=== PATIENT | female | born 1950 | race Caucasian/White ===

== ENCOUNTER 2022-05-26 10:21 | Outpatient (REF) | payer MEDICARE, SELFPAY ==
[2022-05-26 11:46] LABS: MANUAL DIFF FLAG NO
[2022-05-26 12:24] LABS: Basophils Absolute Auto 0.1 X10*3/uL (0.0-0.2); Basophils Percent Auto 0.4 % (0-2); Eosinophils Percent Auto 0.3 % (0-4); Hematocrit 36.8 % (37.0-47.0); Imm Gran Abs Auto 0.15 X10*3/uL (0.00-0.03); Imm Gran Pct Auto 1.1 % (0.0-0.4); Lymphocytes Absolute Auto 2.4 X10*3/uL (1.2-4.9); Lymphocytes Percent Auto 17.2 % (20-40); Mean Corpuscular HGB Conc 32.6 g/dl (31.0-35.0); Mean Corpuscular Hemoglobin 33.5 pg (27.0-33.0); Mean Corpuscular Volume 102.8 fL (80.0-98.0); Mean Platelet Volume 10.9 fL (9.4-12.3); Monocytes Absolute Auto 0.7 X10*3/uL (0.1-1.2); Monocytes Percent Auto 5.1 % (2-11); Neutrophils Absolute Auto 10.5 x10*3/uL (2.0-8.3); Neutrophils Percent Auto 75.9 % (45-73); Platelet Count 213 X10*3/uL (160-400); Red Blood Count 3.58 X10*6/uL (4.20-5.50); Red Cell Distribution Width 14.5 % (11.0-16.0); White Blood Count 13.9 X10*3/uL (4.8-10.8)
[2022-05-26 12:54] LABS: Alanine Aminotransferase 51 U/L (0-31); Albumin Level 4.3 g/dL (3.5-5.0); Alkaline Phosphatase 111 U/L (39-117); Aspartate Amino Transferase 39 U/L (5-31); Bilirubin Direct < 0.2 mg/dL (0.0-0.5); Bilirubin Total 0.4 mg/dL (0.0-1.0); Total Protein 6.8 g/dL (6.5-8.0)
[2022-05-26 13:30] LABS: Erythrocyte Sedimentation Rate 20 MM/HR (0-20)
[2022-05-27 15:04] LABS: IgA 115 mg/dL (70-320); IgG 850 mg/dL (600-1540); IgM 137 mg/dL (50-300)
== END 2022-05-26 10:22 | disposition home or self-care (01) ==
LOC: HO.LAB 10:21
PROVIDERS: PCP Internal Medicine; Visit Provider Hospitalist
DX: J45.909 Unspecified asthma, uncomplicated (principal); Z91.09 Other allergy status, other than to drugs and biological substances
CPT/HCPCS: 36415; 80076; 82784; 82785; 85025; 85652; 86003; 99202

== ENCOUNTER 2022-06-19 10:45 | Outpatient (REF) | payer MEDICARE, SELFPAY ==
--- NOTE | ~2022-06-19 | XR_ITS ---
EXAMINATION: XR CHEST CLINICAL INFORMATION: Reason for Exam J45.40 - Moderate persistent asthma, uncomplicated COMPARISON: None TECHNIQUE: 2 views of the chest FINDINGS: Clear lungs. No pneumothorax or pleural effusion. Normal cardiomediastinal silhouette. XR/XR chest 2V IMPRESSION: * Clear lungs.
== END 2022-06-19 10:46 | disposition home or self-care (01) ==
LOC: HO.RESP 10:45
PROVIDERS: PCP Internal Medicine; Visit Provider Hospitalist
DX: J45.40 Moderate persistent asthma, uncomplicated (principal)
CPT/HCPCS: 71046; 94060; 94727; 94729

== ENCOUNTER → 2022-07-23 09:29 | Outpatient (BNVA) | payer MEDICARE, SELFPAY | PROVIDERS: PCP Internal Medicine; Visit Provider Hospitalist | DX: J45.40 Moderate persistent asthma, uncomplicated (principal); J30.9 Allergic rhinitis, unspecified; Z91.09 Other allergy status, other than to drugs and biological substances; Z79.899 Other long term (current) drug therapy | CPT/HCPCS: 99212 ==

== ENCOUNTER 2023-02-03 09:42 | Outpatient (AMB) | payer MEDICARE, SELFPAY ==
--- NOTE | 2023-02-03 09:48 | MHC.OFFVIS ---
Intake Vital Signs 02/03/23 09:50 Height 5 ft 3 in Weight 145 lb BMI 25.7 BP 132/60 Blood Pressure Location Lt brachial Position Sitting Pulse 89 Pulse Source Pulse Oximeter Pulse Oximetry (%) 98 Oxygen Delivery Method Room Air Intake Visit Reasons: asthma Head Sawyer Required: No Allergies No Known Allergies Allergy (Verified 02/03/23 09:53) HPI HPI Comments History of Present Illness Details The patient is a 72 year woman who has been previously healthy until about 3 years ago when she started developing worsening cough shortness of breath nasal congestion. Typically worse in the winter months. The this year seems to be worse. She has that already multiple courses of prednisone because significant chest tightness wheezing and also chest congestion and sinus congestion. Recently went to an urgent care where she was given another course. While she is on prednisone she feels significantly better. She was prescribed Breo but does not seem to be helping at this time. The patient has had allergy testing in the past demonstrating typical allergens to the environment. The patient denies any new members of the family or any pets or any significant mold exposure. Right now she has not had any significant changes in her life. After the prednisone the breathing significantly improved. Will try to maximize her respiratory therapy anyway. In addition to that will request a chest x-ray and blood work to further address her triggers in addition to assessing her immune function. Also to note the patient does have arthritis. She is being referred to a turning sander tender. Will wait to see the impression. Likely to be multiple separate diagnosis of supposed 1 the universal diagnosis. 07/23/2022 the patient is here for pulmonary follow-up visit. Overall she is feeling a lot better. Her cough is better no shortness of breath is improved. She is responding well to Trelegy. She is concerned about the fall and winter when she has worse symptoms. We did review her chest x-ray demonstrating no acute disease. In addition to that we did look at her allergies she does have an elevated IgE up to 430. She has significant seasonal allergies. She understands that there may be other allergies that may be active that were not tested. The patient did also have pulmonary function studies which we personally reviewed. No evidence of any obstructive nor restrictive ventilatory defects identified. 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 This could be the result of her previous COVID infection. Pulmonary vascular conditions are in the differential. We ruled out anemia in ruled out evidence of any interstitial lung disease based on the x-ray. Will continue to monitor her symptoms. I am hoping that she continues to do well. She does have a nasal congestion. Will go ahead and add Singulair to her regimen. He will follow-up in the fall when she typically has worse symptoms. Will consider biologic therapy if she is worse. The patient also may need to have a CT scan of the chest if she has any worsening symptoms in order to follow-up with any occult interstitial lung disease to try to explain the moderate diffusion impairment. 02/03/2023 the patient is here for pulmonary follow-up visit. She is doing a lot better from a respiratory status per the Trelegy and the singular seem to be very effective for her. Denies any significant chest tightness or wheezing. Her cough is overall better. However, she is having worse degree of postnasal drip and hoarseness. The patient is also having significant nasal congestion. She thinks is allergy related. Denies any sick contacts. The patient has been using Flonase in the morning and also nasal rinsing at nighttime. Her respiratory exam is reassuring. We again reviewed her PFTs demonstrating an isolated diffusion impairment. Will go ahead and repeat the PFTs sometime in the summer of 2023. I hope that we see improvement. It could have been the result of a previous infection such as COVID. The patient clinically is doing well denies any significant dyspnea on exertion. Recently she did undergo blood work and she may have a degree of anemia. I did ask her to see if she can work on that to minimize the anemia prior to her PFTs over the summer. The patient will monitor closely her sinus symptoms. If she develops any sinus pressure pain 0 worsening symptoms she can call for antibiotics. [facility] Medical History (Updated 05/26/22 @ 20:56 by Dev Otero MD) Chronic allergic rhinitis Asthma Social History Patient Tobacco Use Status: Never used Tobacco Review of Systems Const Denies fever(s) Eyes Denies change in vision ENT Reports nasal congestion and Reports nasal discharge Card Denies chest pain Resp Denies chest congestion, Reports cough and Denies wheezing GI Reports no additional complaints Musc Reports no additional complaints Skin/Breast Denies rash Neuro Reports no additional complaints Psych Reports no additional complaints Endo Reports heat intolerance Bob/Lymph Denies easy bleeding, Denies easy bruising and Denies lymphadenopathy Aller/Immun Denies wheezing Physical Exam Const General: alert HEENT Head: Yes normocephalic Eyes Conjunctivae: conjunctivae normal Sclerae: sclerae normal Neck Neck: Yes supple Chest Chest palpation & inspection: normal inspection of the chest Resp Effort & Inspection: normal respiratory effort Auscultation: no wheezes and diminished lung sounds Cardio Rate: regular rate Rhythm: regular rhythm Heart sounds: S1 normal heart sound present and S2 normal heart sound present GI Palpation (GI): Soft to palpation Skin General skin exam: no rashes or lesions noted Extrem General: Yes no clubbing, cyanosis or edema Assessment & Plan Assessment & Plan (1) Chronic allergic rhinitis: Code(s): J30.9 - Allergic rhinitis, unspecified (2) Asthma: Code(s): J45.909 - Unspecified asthma, uncomplicated Qualifiers: Asthma severity: moderate Asthma persistence: persistent Asthma complication type: uncomplicated Qualified Code(s): J45.40 - Moderate persistent asthma, uncomplicated Plan continue Trelegy 200 INDIO as needed continue singulair no Biologic therapy indicated PFTs in 6 months conrinue fluticasone start astelin continue nasal risnsing call if no better F/U 6 months Orders: Orders PFT pulmonary function test 6 Months J45.40 - Moderate persistent asthma, uncomplicated Medications: New azelastine administer into each nostril 2 sprays intranasal BID 30 mL 6RF 30 days Coding Level of Care Code Est Pt Level 4 (34924) Diagnoses Chronic allergic rhinitis J30.9 Moderate persistent asthma without complication J45.40 Asthma severity: moderate Asthma persistence: persistent Asthma complication type: uncomplicated Time Spent (min) 16
[2023-02-03 09:50] VITALS: BP 132/60; PULSE 89; O2SAT 98; BMI 25.7
== END 2023-02-03 10:11 | disposition home or self-care (01) ==
PROVIDERS: PCP Internal Medicine; Visit Provider Hospitalist
DX: J30.9 Allergic rhinitis, unspecified (principal); J45.40 Moderate persistent asthma, uncomplicated
CPT/HCPCS: 99214

== ENCOUNTER → 2023-02-03 09:42 | Outpatient (BNVA) | payer MEDICARE, SELFPAY | PROVIDERS: PCP Internal Medicine; Visit Provider Hospitalist | DX: J45.40 Moderate persistent asthma, uncomplicated (principal); J30.9 Allergic rhinitis, unspecified | CPT/HCPCS: 99212 ==

== ENCOUNTER 2023-08-11 09:50 | Outpatient (AMB) | payer MEDICARE, SELFPAY ==
[2023-08-11 09:53] VITALS: BP 118/60; PULSE 87; O2SAT 98; BMI 26.6
--- NOTE | 2023-08-11 09:53 | A.OFFVIS_ITS ---
Vital Signs 08/11/23 09:53 Height 5 ft 3 in Weight 150 lb BMI 26.6 BP 118/60 Blood Pressure Location Lt brachial Position Sitting Pulse 87 Pulse Source Pulse Oximeter Pulse Oximetry (%) 98 Oxygen Delivery Method Room Air Intake Visit Reasons: asthma Pottery Kiln Builder Required: No Allergies No Known Allergies Allergy (Verified 08/11/23 09:55) HPI Comments Details: The patient is a 73 year woman who has been previously healthy until about 3 years ago when she started developing worsening cough shortness of breath nasal congestion. Typically worse in the winter months. The this year seems to be worse. She has that already multiple courses of prednisone because significant chest tightness wheezing and also chest congestion and sinus congestion. Recently went to an urgent care where she was given another course. While she is on prednisone she feels significantly better. She was prescribed Breo but does not seem to be helping at this time. The patient has had allergy testing in the past demonstrating typical allergens to the environment. The patient denies any new members of the family or any pets or any significant mold exposure. Right now she has not had any significant changes in her life. After the prednisone the breathing significantly improved. Will try to maximize her respiratory therapy anyway. In addition to that will request a chest x-ray and blood work to further address her triggers in addition to assessing her immune function. Also to note the patient does have arthritis. She is being referred to a crucible furnace tender. Will wait to see the impression. Likely to be multiple separate diagnosis of supposed 1 the universal diagnosis. 07/23/2022 the patient is here for pulmonary follow-up visit. Overall she is feeling a lot better. Her cough is better no shortness of breath is improved. She is responding well to Trelegy. She is concerned about the fall and winter when she has worse symptoms. We did review her chest x-ray demonstrating no acute disease. In addition to that we did look at her allergies she does have an elevated IgE up to 430. She has significant seasonal allergies. She understands that there may be other allergies that may be active that were not tested. The patient did also have pulmonary function studies which we personall y reviewed. No evidence of any obstructive nor restrictive ventilatory defects identified. 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 This could be the result of her previous COVID infection. Pulmonary vascular conditions are in the differential. We ruled out anemia in ruled out evidence of any interstitial lung disease based on the x- ray. Will continue to monitor her symptoms. I am hoping that she continues to do well. She does have a nasal congestion. Will go ahead and add Singulair to her regimen. He will follow-up in the fall when she typically has worse symptoms. Will consider biologic therapy if she is worse. The patient also may need to have a CT scan of the chest if she has any worsening symptoms in order to follow-up with any occult interstitial lung disease to try to explain the moderate diffusion impairment. 02/03/2023 the patient is here for pulmonary follow-up visit. She is doing a lot better from a respiratory status per the Trelegy and the singular seem to be very effective for her. Denies any significant chest tightness or wheezing. Her cough is overall better. However, she is having worse degree of postnasal drip and hoarseness. The patient is also having significant nasal congestion. She thinks is allergy related. Denies any sick contacts. The patient has been using Flonase in the morning and also nasal rinsing at nighttime. Her respiratory exam is reassuring. We again reviewed her PFTs demonstrating an isolated diffusion impairment. Will go ahead and repeat the PFTs sometime in the summer of 2023. I hope that we see improvement. It could have been the result of a previous infection such as COVID. The patient clinically is doing well denies any significant dyspnea on exertion. Recently she did undergo blood work and she may have a degree of anemia. I did ask her to see if she can work on that to minimize the anemia prior to her PFTs over the summer. The patient will monitor closely her sinus symptoms. If she develops any sinus pressure pain 0 worsening symptoms she can call for antibiotics. 08/11/2023 the patient is here for pulmonary follow-up visit patient mayfield doing okay. She still has a cough. The cough is moderate severe and is usually nonproductive. Typically bothers her at nighttime. Seems to be an upper airway cough syndrome. She did try the Astelin nasal spray but she did not like the acetate in the fact that her food taste. Therefore she could not tolerating longer she stopped it. She continues on the fluticasone. She has done the nasal rinsing in the past. She is going to go back to it. We did review her pulmonary function studies. It appears that she has moderate diffusion impairment that is isolated. So unlikely real care will go ahead and repeat her PFTs at this time. In addition to that she continues on the Trelegy inhaler. It has been affecting beneficial although she still needs her albuterol on a daily basis. Today she did have a coughing spell in the office. Typically it appears to be hacky and nonproductive Bard bronchospastic some degree. She is being provided with the nebulizer treatment to see if she has any relief. She may benefit from a nebulizer at this time. As far as imaging studies she had an x-ray about a year ago we demonstrating no acute disease clear lungs. Now recent imaging at this time. [facility] Medical History (Updated 05/26/22 @ 20:56 by Dev Otero MD) Chronic allergic rhinitis Asthma Social History Patient Tobacco Use Status: Never used Tobacco Review of Systems Const Denies fever(s) Eyes Denies change in vision ENT Reports nasal congestion and Reports nasal discharge Card Denies chest pain Resp Denies chest congestion, Reports cough and Denies wheezing GI Reports no additional complaints Musc Reports no additional complaints Skin/Breast Denies rash Neuro Reports no additional complaints Psych Reports no additional complaints Endo Reports heat intolerance Bob/Lymph Denies easy bleeding, Denies easy bruising and Denies lymphadenopathy Aller/Immun Denies wheezing Physical Exam Vital Signs: Last Vital Signs Pulse 87 08/11/23 09:53 BP 118/60 08/11/23 09:53 Pulse Ox 98 08/11/23 09:53 Oxygen Delivery Method Room Air 08/11/23 09:53 BMI result Body Mass Index 26.6 Const General: alert HEENT Head: Yes normocephalic Eyes Conjunctivae: conjunctivae normal Sclerae: sclerae normal Neck Neck: Yes supple Chest Chest palpation & inspection: normal inspection of the chest Resp Effort & Inspection: normal respiratory effort Auscultation: no wheezes and diminished lung sounds Cardio Rate: regular rate Rhythm: regular rhythm Heart sounds: S1 normal heart sound present and S2 normal heart sound present GI Palpation (GI): Soft to palpation Skin General skin exam: no rashes or lesions noted Extrem General: Yes no clubbing, cyanosis or edema Office Procedures Nebulizer Treatment Nebulizer Treatment [id number]/[id number] RX initial, or Nebulizer Subsequent Treatment Office Meds albuterol sulfate 2.5 mg/3 mL (0.083 %) solution for nebulization Performing Provider: Dev Otero MD Performing Location: [facility] Administered by: Alida Melara LPN on 08/11/23 10:13 Dose Route Admin Location Dispensed Lot Number Expiration Date NDC Community Resource Officer 2.5 mg inhalation 3 mL [id number] 05/30/24 2516-7847-39 MYLAN Assessment & Plan Assessment & Plan (1) Chronic allergic rhinitis: Code(s): J30.9 - Allergic rhinitis, unspecified Category: Medical (2) Asthma: Code(s): J45.909 - Unspecified asthma, uncomplicated Category: Medical Qualifiers: Asthma complication type: uncomplicated Asthma persistence: persistent Asthma severity: moderate Qualified Code(s): J45.40 - Moderate persistent asthma, uncomplicated Plan continue Trelegy 200 INDIO as needed continue singulair no Biologic therapy indicated PFTs conrinue fluticasone stop astelin continue nasal risnsing start nebulizer therapy (nebulizer provided) with albuterol start acapella valve start zyrtec F/U 4 months with PFTs Orders: Orders AMB Nebulizer Treatment Today J45.40 - Moderate persistent asthma, uncomplicated PFT pulmonary function test 3 Months J45.40 - Moderate persistent asthma, uncomplicated Medications: New cetirizine (Zyrtec) 10 mg PO DAILY 30 tabs 6RF allergy symptoms levalbuterol HCl 1.25 mg (3 mL) inhalation BID 30 days 180 mL 5RF J44.9 - Chronic obstructive pulmonary disease, unspecified, J45.40 - Moderate persistent asthma, uncomplicated Coding Level of Care Code Est Pt Level 4 (04035) Diagnoses Chronic allergic rhinitis J30.9 Moderate persistent asthma without complication J45.40 Asthma complication type: uncomplicated Asthma persistence: persistent Asthma severity: moderate CPT Codes Nebulizer Treatment - Nebulizer Treatment, initial or subsequent: 10045- Nebulizer/MDI RX initial, or Nebulizer Subsequent Treatment ([id number]) Time Spent (min) 18
== END 2023-08-11 10:29 | disposition home or self-care (01) ==
PROVIDERS: PCP Internal Medicine; Visit Provider Hospitalist
DX: J30.9 Allergic rhinitis, unspecified (principal); J45.40 Moderate persistent asthma, uncomplicated
CPT/HCPCS: 99214

== ENCOUNTER → 2023-08-11 09:50 | Outpatient (BNVA) | payer MEDICARE, SELFPAY | PROVIDERS: PCP Internal Medicine; Visit Provider Hospitalist | DX: J45.909 Unspecified asthma, uncomplicated (principal) | CPT/HCPCS: 94640; 99212 ==

== ENCOUNTER 2023-12-31 10:49 | Outpatient (REF) | payer MEDICARE, SELFPAY ==
--- NOTE | 2023-12-31 10:54 | PFT_ITS ---
Indication: Asthma Spirometry [FEV1 to FVC 75%; FEV1 2.21 L; FVC 2.94 L. no significant response to bronchodilators noted. Maximum voluntary ventilation 103% predicted] Lung Volumes [Total lung capacity 90% predicted; expiratory reserve volume 59% predicted] Diffusion Capacity [DLCO 78% predicted] Comparisons [None] Interpretation [No obstructive nor restrictive ventilatory defects identified. No significant response to bronchodilators noted. Normal maximum voluntary ventilation. Lung volumes within normal limits. The patient does have a mild diffusion impairment. If asthma is a new differential methacholine challenge very helpful in assessing for hyperreactive airways. Clinical correlation warranted.] MTDD
[2024-01-14 09:30] VITALS: PULSE 85; RESP 16; O2SAT 97
== END 2023-12-31 10:50 | disposition home or self-care (01) ==
LOC: HO.RESP 10:49
PROVIDERS: PCP Internal Medicine; Visit Provider Hospitalist
DX: J45.40 Moderate persistent asthma, uncomplicated (principal)
CPT/HCPCS: 94010; 94640; 94727; 94729

== ENCOUNTER → 2023-12-31 10:54 | Outpatient (BNV) | payer MEDICARE, SELFPAY | PROVIDERS: PCP Internal Medicine; Visit Provider Hospitalist | DX: J45.40 Moderate persistent asthma, uncomplicated (principal) | CPT/HCPCS: 94060; 94727; 94729 ==

== ENCOUNTER 2024-01-21 13:34 | Outpatient (AMB) | payer MEDICARE, SELFPAY ==
--- NOTE | 2024-01-21 13:51 | A.OFFVIS_ITS ---
Vital Signs 01/21/24 13:52 Height 5 ft 3 in Weight 158 lb 11.725 oz BMI 28.1 BP 142/80 H Blood Pressure Location Lt brachial Position Sitting Pulse 89 Pulse Source Pulse Oximeter Pulse Oximetry (%) 96 Oxygen Delivery Method Room Air Intake Visit Reasons: asthma Allergies No Known Allergies Allergy (Verified 01/21/24 13:54) HPI Comments Details: The patient is a 73 year woman who has been previously healthy until about 3 years ago when she started developing worsening cough shortness of breath nasal congestion. Typically worse in the winter months. The this year seems to be worse. She has that already multiple courses of prednisone because significant chest tightness wheezing and also chest congestion and sinus congestion. Recently went to an urgent care where she was given another course. While she is on prednisone she feels significantly better. She was prescribed Breo but does not seem to be helping at this time. The patient has had allergy testing in the past demonstrating typical allergens to the environment. The patient denies any new members of the family or any pets or any significant mold exposure. Right now she has not had any significant changes in her life. After the prednisone the breathing significantly improved. Will try to maximize her respiratory therapy anyway. In addition to that will request a chest x-ray and blood work to further address her triggers in addition to assessing her immune function. Also to note the patient does have arthritis. She is being referred to a creative arts music therapist. Will wait to see the impression. Likely to be multiple separate diagnosis of supposed 1 the universal diagnosis. 07/23/2022 the patient is here for pulmonary follow-up visit. Overall she is feeling a lot better. Her cough is better no shortness of breath is improved. She is responding well to Trelegy. She is concerned about the fall and winter when she has worse symptoms. We did review her chest x-ray demonstrating no acute disease. In addition to that we did look at her allergies she does have an elevated IgE up to 430. She has significant seasonal allergies. She understands that there may be other allergies that may be active that were not tested. The patient did also have pulmonary function studies which we personally reviewed. No evidence of any obstructive nor restrictive ventilatory defects identified. 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 This could be the result of her previous COVID infection. Pulmonary vascular conditions are in the differential. We ruled out anemia in ruled out evidence of any interstitial lung disease based on the x-ray. Will continue to monitor her symptoms. I am hoping that she continues to do well. She does have a nasal congestion. Will go ahead and add Singulair to her regimen. He will follow-up in the fall when she typically has worse symptoms. Will consider biologic therapy if she is worse. The patient also may need to have a CT scan of the chest if she has any worsening symptoms in order to follow-up with any occult interstitial lung dise ase to try to explain the moderate diffusion impairment. 02/03/2023 the patient is here for pulmonary follow-up visit. She is doing a lot better from a respiratory status per the Trelegy and the singular seem to be very effective for her. Denies any significant chest tightness or wheezing. Her cough is overall better. However, she is having worse degree of postnasal drip and hoarseness. The patient is also having significant nasal congestion. She thinks is allergy related. Denies any sick contacts. The patient has been using Flonase in the morning and also nasal rinsing at nighttime. Her respiratory exam is reassuring. We again reviewed her PFTs demonstrating an isolated diffusion impairment. Will go ahead and repeat the PFTs sometime in the summer of 2023. I hope that we see improvement. It could have been the result of a previous infection such as COVID. The patient clinically is doing well denies any significant dyspnea on exertion. Recently she did undergo blood work and she may have a degree of anemia. I did ask her to see if she can work on that to minimize the anemia prior to her PFTs over the summer. The patient will monitor closely her sinus symptoms. If she develops any sinus pressure pain 0 worsening symptoms she can call for antibiotics. 08/11/2023 the patient is here for pulmonary follow-up visit patient mayfield doing okay. She still has a cough. The cough is moderate severe and is usually nonproductive. Typically bothers her at nighttime. Seems to be an upper airway cough syndrome. She did try the Astelin nasal spray but she did not like the acetate in the fact that her food taste. Therefore she could not tolerating longer she stopped it. She continues on the fluticasone. She has done the nasal rinsing in the past. She is going to go back to it. We did review her pulmonary function studies. It appears that she has moderate diffusion impairment that is isolated. So unlikely real care will go ahead and repeat her PFTs at this time. In addition to that she continues on the Trelegy inhaler. It has been affecting beneficial although she still needs her albuterol on a daily basis. Today she did have a coughing spell in the office. Typically it appears to be hacky and nonproductive Bard bronchospastic some degree. She is being provided with the nebulizer treatment to see if she has any relief. She may benefit from a nebulizer at this time. As far as imaging studies she had an x-ray about a year ago we demonstrating no acute disease clear lungs. Now recent imaging at this time. 01/21/2024 the patient is here for a pulmonary follow-up visit. Overall she is doing okay. She is here with the . She is complaining about her cough. Since to be worse at nighttime. Typically nonproductive in nature hacky cough moderate severity that affects her sleep. Also affects his sleep. She does have reflux disease and she takes medication. We did talk about the importance the reflux diet also sleeping elevated and having small meals. The going to work on lifting up the head of the bed to try to help her with that. In the meantime the patient did have issues with hoarseness. Could be related to reflux related laryngeal penetration although she is also on Trelegy which is a powder inhaler that can also affect the vocal cords. At this point the patient would need to have a laryngoscopy to better address the hoarseness. Will have her referred to ENT where she can have a laryngoscopy and have a full evaluation for that. For now she will continue with the Trelegy and she needs to gargle with mouthwash better than water. The patient has been using cough medication. Usually cough drops. Will go ahead and prescribe some benzo nights. Also give her good Rx card just in case her insurance does not cover. If she has still has an issue she will call for further evaluation. Otherwise will follow-up in the springtime. also, her last chest x-ray was in 2022 was read as normal. Will have her repeat the x-ray whenever able to make sure that we are monitoring closely for any changes. Will follow-up in 4-6 months. If any issues arise prior to that she will call for an earlier assessing. [facility] Medical History (Updated 01/21/24 @ 14:04 by Dev Otero MD) Hoarseness Chronic allergic rhinitis Asthma Social History Patient Tobacco Use Status: Never used Tobacco Review of Systems Const Denies fever(s) Eyes Denies change in vision ENT Reports nasal congestion and Reports nasal discharge Card Denies chest pain Resp Denies chest congestion, Reports cough and Denies wheezing GI Reports no additional complaints and Reports heartburn Musc Reports no additional complaints Skin/Breast Denies rash Neuro Reports no additional complaints Psych Reports no additional complaints Endo Reports heat intolerance Bob/Lymph Denies easy bleeding, Denies easy bruising and Denies lymphadenopathy Aller/Immun Denies wheezing Physical Exam Vital Signs: Last Vital Signs Pulse 89 01/21/24 13:52 BP 142/80 H 01/21/24 13:52 Pulse Ox 96 01/21/24 13:52 Oxygen Delivery Method Room Air 01/21/24 13:52 BMI result Body Mass Index 28.1 Const General: alert HEENT Head: Yes normocephalic Eyes Conjunctivae: conjunctivae normal Sclerae: sclerae normal Neck Neck: Yes supple Chest Chest palpation & inspection: normal inspection of the chest Resp Effort & Inspection: normal respiratory effort Auscultation: no wheezes and diminished lung sounds Cardio Rate: regular rate Rhythm: regular rhythm Heart sounds: S1 normal heart sound present and S2 normal heart sound present GI Palpation (GI): Soft to palpation Skin General skin exam: no rashes or lesions noted Extrem General: Yes no clubbing, cyanosis or edema Assessment & Plan Assessment & Plan (1) Chronic allergic rhinitis: Code(s): J30.9 - Allergic rhinitis, unspecified Category: Medical (2) Asthma: Code(s): J45.909 - Unspecified asthma, uncomplicated Category: Medical Qualifiers: Asthma complication type: uncomplicated Asthma persistence: persistent Asthma severity: moderate Qualified Code(s): J45.40 - Moderate persistent asthma, uncomplicated (3) Hoarseness: Code(s): R49.0 - Dysphonia Category: Medical Plan continue Trelegy 200 INDIO as needed continue singulair no Biologic therapy indicated continue nasal risnsing nebulizer therapy (nebulizer provided) with albuterol acapella valve CXR ENT referral Benzonates as needed for cough-Goodrx card provided reflux diet HOB elevated continue PPI F/U 4-6 months Orders: Orders XR chest 2V Today J45.40 - Moderate persistent asthma, uncomplicated Referrals Ear/Nose/Throat Referral J30.9 - Allergic rhinitis, unspecified, R49.0 - Dysphonia Medications: New benzonatate 200 mg PO BID PRN 30 caps 11RF cough 30 days benzonatate 200 mg PO BID PRN 60 caps 9RF cough 30 days Coding Level of Care Code Est Pt Level 4 (14942) Complex EM visit Add On G2211 Diagnoses Chronic allergic rhinitis J30.9 Moderate persistent asthma without complication J45.40 Asthma complication type: uncomplicated Asthma persistence: persistent Asthma severity: moderate Hoarseness R49.0 Time Spent (min) 18
[2024-01-21 13:52] VITALS: BP 142/80; PULSE 89; O2SAT 96; BMI 28.1
== END 2024-01-21 14:23 | disposition home or self-care (01) ==
PROVIDERS: PCP Internal Medicine; Visit Provider Hospitalist
DX: J30.9 Allergic rhinitis, unspecified (principal); J45.40 Moderate persistent asthma, uncomplicated; R49.0 Dysphonia
CPT/HCPCS: 99214; G2211

== ENCOUNTER → 2024-01-21 13:34 | Outpatient (BNVA) | payer MEDICARE, SELFPAY | PROVIDERS: PCP Internal Medicine; Visit Provider Hospitalist | DX: J45.40 Moderate persistent asthma, uncomplicated (principal); J30.9 Allergic rhinitis, unspecified; R49.0 Dysphonia | CPT/HCPCS: 99212 ==

== ENCOUNTER 2024-07-26 10:48 | Outpatient (AMB) | payer MEDICARE, SELFPAY ==
[2024-07-26 10:57] VITALS: BP 110/56; PULSE 76; O2SAT 96; BMI 28.1
--- NOTE | 2024-07-26 10:57 | MHC.OFFVIS ---
Vital Signs 07/26/24 10:57 Height 5 ft 3 in Weight 158 lb 11.725 oz BMI 28.1 BP 110/56 L Blood Pressure Location Lt brachial Position Sitting Pulse 76 Pulse Source Pulse Oximeter Pulse Oximetry (%) 96 Oxygen Delivery Method Room Air Intake Visit Reasons: Asthma Energy Professional Required: No Accompanied by: Self / Same As Patient Allergies No Known Allergies Allergy (Verified 07/26/24 11:01) HPI Comments Details: The patient is a 73 year woman who has been previously healthy until about 3 years ago when she started developing worsening cough shortness of breath nasal congestion. Typically worse in the winter months. The this year seems to be worse. She has that already multiple courses of prednisone because significant chest tightness wheezing and also chest congestion and sinus congestion. Recently went to an urgent care where she was given another course. While she is on prednisone she feels significantly better. She was prescribed Breo but does not seem to be helping at this time. The patient has had allergy testing in the past demonstrating typical allergens to the environment. The patient denies any new members of the family or any pets or any significant mold exposure. Right now she has not had any significant changes in her life. After the prednisone the breathing significantly improved. Will try to maximize her respiratory therapy anyway. In addition to that will request a chest x-ray and blood work to further address her triggers in addition to assessing her immune function. Also to note the patient does have arthritis. She is being referred to a ferry operator. Will wait to see the impression. Likely to be multiple separate diagnosis of supposed 1 the universal diagnosis. 07/23/2022 the patient is here for pulmonary follow-up visit. Overall she is feeling a lot better. Her cough is better no shortness of breath is improved. She is responding well to Trelegy. She is concerned about the fall and winter when she has worse symptoms. We did review her chest x-ray demonstrating no acute disease. In addition to that we did look at her allergies she does have an elevated IgE up to 430. She has significant seasonal allergies. She understands that there may be other allergies that may be active that were not tested. The patient did also have pulmonary function studies which we personally reviewed. No evidence of any obstructive nor restrictive ventilatory defects identified. 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 This could be the result of her previous COVID infection. Pulmonary vascular conditions are in the differential. We ruled out anemia in ruled out evidence of any interstitial lung disease based on the x-ray. Will continue to monitor her symptoms. I am hoping that she continues to do well. She does have a nasal congestion. Will go ahead and add Singulair to her regimen. He will follow-up in the fall when she typically has worse symptoms. Will consider biologic therapy if she is worse. The patient also may need to have a CT scan of the chest if she has any worsening symptoms in order to follow-up with any occult interstitial lung disease to try to explain the moderate diffusion impairment. 02/03/2023 the patient is here for pulmonary follow-up visit. She is doing a lot better from a respiratory status per the Trelegy and the singular seem to be very effective for her. Denies any significant chest tightness or wheezing. Her cough is overall better. However, she is having worse degree of postnasal drip and hoarseness. The patient is also having significant nasal congestion. She thinks is allergy related. Denies any sick contacts. The patient has been using Flonase in the morning and also nasal rinsing at nighttime. Her respiratory exam is reassuring. We again reviewed her PFTs demonstrating an isolated diffusion impairment. Will go ahead and repeat the PFTs sometime in the summer of 2023. I hope that we see improvement. It could have been the result of a previous infection such as COVID. The patient clinically is doing well denies any significant dyspnea on exertion. Recently she did undergo blood work and she may have a degree of anemia. I did ask her to see if she can work on that to minimize the anemia prior to her PFTs over the summer. The patient will monitor closely her sinus symptoms. If she develops any sinus pressure pain 0 worsening symptoms she can call for antibiotics. 08/11/2023 the patient is here for pulmonary follow-up visit patient mayfield doing okay. She still has a cough. The cough is moderate severe and is usually nonproductive. Typically bothers her at nighttime. Seems to be an upper airway cough syndrome. She did try the Astelin nasal spray but she did not like the acetate in the fact that her food taste. Therefore she could not tolerating longer she stopped it. She continues on the fluticasone. She has done the nasal rinsing in the past. She is going to go back to it. We did review her pulmonary function studies. It appears that she has moderate diffusion impairment that is isolated. So unlikely real care will go ahead and repeat her PFTs at this time. In addition to that she continues on the Trelegy inhaler. It has been affecting beneficial although she still needs her albuterol on a daily basis. Today she did have a coughing spell in the office. Typically it appears to be hacky and nonproductive Bard bronchospastic some degree. She is being provided with the nebulizer treatment to see if she has any relief. She may benefit from a nebulizer at this time. As far as imaging studies she had an x-ray about a year ago we demonstrating no acute disease clear lungs. Now recent imaging at this time. 01/21/2024 the patient is here for a pulmonary follow-up visit. Overall she is doing okay. She is here with the . She is complaining about her cough. Since to be worse at nighttime. Typically nonproductive in nature hacky cough moderate severity that affects her sleep. Also affects his sleep. She does have reflux disease and she takes medication. We did talk about the importance the reflux diet also sleeping elevated and having small meals. The going to work on lifting up the head of the bed to try to help her with that. In the meantime the patient did have issues with hoarseness. Could be related to reflux related laryngeal penetration although she is also on Trelegy which is a powder inhaler that can also affect the vocal cords. At this point the patient would need to have a laryngoscopy to better address the hoarseness. Will have her referred to ENT where she can have a laryngoscopy and have a full evaluation for that. For now she will continue with the Trelegy and she needs to gargle with mouthwash better than water. The patient has been using cough medication. Usually cough drops. Will go ahead and prescribe some benzo nights. Also give her good Rx card just in case her insurance does not cover. If she has still has an issue she will call for further evaluation. Otherwise will follow-up in the springtime. also, her last chest x-ray was in 2022 was read as normal. Will have her repeat the x-ray whenever able to make sure that we are monitoring closely for any changes. Will follow-up in 4-6 months. If any issues arise prior to that she will call for an earlier assessing. 07/26/2024 the patient is here for pulmonary follow-up visit. Overall she is doing well. She continues on the Trelegy. The Trelegy has been affecting beneficial. Her cough is significantly improved. She did not have to follow-up with ENT so therefore she canceled. No recent imaging to review right now. When she returns next year will go ahead and repeat an x-ray. The patient does have a rescue inhaler although she rarely uses it. And she does take allergy medicines. We did review her allergy testing she has significant allergies specially in the springtime to the trees. Therefore keeping up with her allergy medicine is richardson. The patient is no longer going to follow-up with Allergy for now will continue to provide her with the allergy medications but if her symptoms worsen she can always consider going back for immunotherapy in for further allergy testing. Will plan to follow-up next year if she has any issues prior to this next visit she will call for an earlier assessment. [facility] Medical History (Updated 01/21/24 @ 14:04 by Dev Otero MD) Hoarseness Chronic allergic rhinitis Asthma Social History Patient Tobacco Use Status: Never used Tobacco Review of Systems Const Denies fever(s) Eyes Denies change in vision ENT Reports nasal congestion and Reports nasal discharge Card Denies chest pain Resp Denies chest congestion, Reports cough and Denies wheezing GI Reports no additional complaints and Reports heartburn Musc Reports no additional complaints Skin/Breast Denies rash Neuro Reports no additional complaints Psych Reports no additional complaints Endo Reports heat intolerance Bob/Lymph Denies easy bleeding, Denies easy bruising and Denies lymphadenopathy Aller/Immun Denies wheezing Physical Exam Vital Signs: Last Vital Signs Pulse 76 07/26/24 10:57 BP 110/56 L 07/26/24 10:57 Pulse Ox 96 07/26/24 10:57 Oxygen Delivery Method Room Air 07/26/24 10:57 BMI result Body Mass Index 28.1 Const General: alert HEENT Head: Yes normocephalic Eyes Conjunctivae: conjunctivae normal Sclerae: sclerae normal Neck Neck: Yes supple Chest Chest palpation & inspection: normal inspection of the chest Resp Effort & Inspection: normal respiratory effort and prolonged expiratory phase Auscultation: no wheezes and diminished lung sounds Cardio Rate: regular rate Rhythm: regular rhythm Heart sounds: S1 normal heart sound present and S2 normal heart sound present GI Palpation (GI): Soft to palpation Skin General skin exam: no rashes or lesions noted Extrem General: Yes no clubbing, cyanosis or edema Assessment & Plan Assessment & Plan (1) Chronic allergic rhinitis: Code(s): J30.9 - Allergic rhinitis, unspecified Category: Medical (2) Asthma: Code(s): J45.909 - Unspecified asthma, uncomplicated Category: Medical Qualifiers: Asthma complication type: uncomplicated Asthma persistence: persistent Asthma severity: moderate Qualified Code(s): J45.40 - Moderate persistent asthma, uncomplicated (3) Hoarseness: Code(s): R49.0 - Dysphonia Category: Medical Plan continue Trelegy 200 INDIO as needed continue singulair no Biologic therapy indicated continue nasal risnsing nebulizer therapy (nebulizer provided) with albuterol acapella valve ENT referral cancelled by pt Benzonates as needed for cough-Goodrx card provided reflux diet HOB elevated continue PPI F/U 8-12 months, will request CXR then Coding Level of Care Code Est Pt Level 4 (44194) Diagnoses Chronic allergic rhinitis J30.9 Moderate persistent asthma without complication J45.40 Asthma complication type: uncomplicated Asthma persistence: persistent Asthma severity: moderate Hoarseness R49.0 Time Spent (min) 16
--- OUTSIDE RECORDS SUMMARY | 2024-07-26 11:38 | XMS_ITS | Clinical Summary ---
Author Organization [address] [facility] Address [address] [place] [address] Phone Care Team Providers Care Motor Installer Name Role Phone Alida Spear MD Primary Care Provider [phone] Allergies No known active allergies Medications bisacodyL (Dulcolax, bisacodyl,) 5 mg EC tablet Take 4 tabs by mouth right before beginning bowel prep. Follow instructions given by office for timing. 1 Active fluticasone propionate (FLONASE) 50 mcg/actuation nasal spray SHAKE LIQUID AND USE 2 SPRAYS IN EACH NOSTRIL DAILY 1 Active fluticasone furoate-vilante roL (Breo Ellipta) 100-25 mcg/dose inhaler INHALE 1 PUFF BY MOUTH DAILY 1 Active traZODone (DESYREL) 50 mg tablet TAKE 1/2 TABLET BY MOUTH AT BEDTIME NEEDED FOR SLEEP 1 Active albuterol HFA (PROAIR HFA ; PROVENTIL HFA ; VENTOLIN HFA) 90 mcg/actuation inhaler Inhale 2 Puffs into the lungs every 4 hours as needed for Cough or Wheezing. 1 Active rosuvastatin (CRESTOR) 10 mg tablet TAKE 1 TABLET DAILY 1 Active cholecalciferol (VITAMIN D-3) 25 mcg (1,000 unit) tablet 6 Active glucosamine/msm /chondrt/C/hyal (GLUCOSAMINE-CH ONDROITIN-MSM ORAL) [id number] A CHONDR-MSM [id number] MG TABS: Take by mouth. Active multivit-min/fe rrous fumarate (MULTI VITAMIN ORAL) 1 tab daily Active Active Problems Problem Noted Date Diagnosed Date Internal hemorrhoids 01/09/2021 Elevated alkaline phosphatase level 01/26/2018 Basal cell carcinoma of skin 08/07/2015 Overview (01/18/2024): BCC 05/13 central chest (superficial) 03/15 left shoulder (superficial), eyelid Hyperglycemia 04/10/2014 Lateral epicondylitis 03/08/2013 Elevated MCV 02/22/2013 Overview (01/18/2024): Normal B12, TSH, Folate 03/14 Mixed hyperlipidemia 04/06/2009 Colon polyps 05/20/2007 Immunizations Name Administration Dates Next Due Moderna SARS-CoV-2 COVID-19, mRNA, LNP-S, preservative free 06/13/2020,05/03/2020 Pneumococcal conjugate 13 va lent (Prevnar 13, PCV13) 2mo and older 03/21/2015 Pneumococcal polysaccharide 23 valent (Pneumovax 23) 2yo and older 08/10/2018 Td Tetanus diptheria (Tdvax) 7yo and older 01/06 Tdap Tetanus diptheria acell ular pertussis (Boostrix; Adacel) 7yo and older 10/10/2011 Zoster Live 12/08/2012 Surgical History Surgery Date Site/Laterality Comments TONSILLECTOMY PROCEDURE: CA TONSILLECTOMY PRIMARY/SECONDARY <AGE 11 OTHER SURGICAL HISTORY 1986 PROCEDURE: ARTHROSCOPY PROCEDURE NEC; COMMENT: left foot/ KNEE SURGERY 2011 PROCEDURE: HISTORICAL KNEE SURGERY; COMMENT: left and right. 2010 also OTHER SURGICAL HISTORY 09/2014 PROCEDURE: HISTORY OTHER; COMMENT: stent in vagina for incontinence OTHER SURGICAL HISTORY 2013 PROCEDURE: HISTORY OTHER; COMMENT: excision basal cell ca FOOT SURGERY 04/13/2015 Right PROCEDURE: HISTORICAL FOOT SURGERY; COMMENT: Cole bunionectomy COLONOSCOPY 10/26/2007 PROCEDURE: HISTORICAL COLONOSCOPY; COMMENT: Negative COLONOSCOPY 03/08/2020 PROCEDURE: HISTORICAL COLONOSCOPY; COMMENT: 18 mm rectal polyp: Tubular adenoma. CATARACT EXTRACTION 04/2020 Left PROCEDURE: HISTORICAL CATARACT REMOVAL COLONOSCOPY 12/25/2020 PROCEDURE: HISTORICAL COLONOSCOPY Medical History Medical History Date Comments Absence of menstruation DX:Absen ce of menstruation Special screening for malign ant neoplasms, colon 05/20/2007 DX:Special screening for mal ignant neoplasms, colon; COMMENT: Ref approx 2002, pt cancelled. Negative colonoscopy 10/26/2007, no colon cancer screening needed for 10 years. History of basal cell carcinoma 08/07/2015 DX:History of basal cell carcinoma Colon polyps 05/20/2007 DX:Colon polyps Internal hemorrhoids 01/09/2021 DX:Internal hemorrhoids Family History Medical History Relation Name Comments Coronary artery disease Brother 1 DM Other: brain anerysms Brother 2 Diabetes Brother 3 PA Cervical cancer Daughter alive Asthma Father Blindness Neg Hx Breast cancer Neg Hx Cataracts Neg Hx Colon cancer Neg Hx Glaucoma Neg Hx Macular degeneration Neg Hx Strabismus Neg Hx Relation Name Status Comments Brother 1 Brother 2 Brother 3 Brother 4 Alive Brother 5 Alive Daughter Father Maternal Grandfather Maternal Grandmother Mother Paternal Grandfather Paternal Grandmother Sister 1 Alive Sister 2 Alive Social History Tobacco Use Types Packs/Day Years Used Date Smoking Tobacco: Former Cigarettes Q uit: 03/02/1974 Smokeless Tobacco: Never Alcohol Use Standard Drinks/Week Comments Yes 0 (1 standard drink = 0.6 oz pur e alcohol) Comments Unknown Sex and Gender Information Value Date Recorded Sex Assigned at Not on file Legal Sex Female 9:56 AM EST Gender Identity Not on file Sexual Orientation Not on file Obstetrics History Last Filed Vital Signs Vital Sign Reading Time Taken Comments Blood Pressure 123/75 02/23/2024 2:23 PM EST Pulse 78 02/23/2024 2:23 PM EST Temperature - - Respiratory Rate - - Oxygen Saturation 97% 02/23/2024 2:23 PM EST Inhaled Oxygen Concentration - - Weight 66.7 kg (147 lb) 02/23/2024 2:23 PM EST Height 160 cm (5' 3 ) 02/23/2024 2:23 PM EST Body Mass Index 26.04 02/23/2024 2:23 PM EST Plan of Treatment Upcoming Encounters Date Type Department Care Team (Late st Contact Info) Description 12/09/2024 11:00 AM EDT Appointment Radiology Department [address] [address] Health Maintenance Due Date Last Done Comments Zoster Vaccines (1 of 2) 02/02/2013 12/08/2012 DTaP,Tdap,and Td Vaccines (3 - Td or Tdap) 10/09/2021 10/10/2011, 01/06/2003 Depression Screening 02/08/2022 Falls Risk Assessment 02/08/2022 Medicare Annual Wellness Visit 02/08/2022 Social Influencers of Health Screening 02/08/2022 COVID-19 Vaccine ( season) 2023 01/01/2021, 06/13/2020, 05/31/2020, Additional history exists RSV Immunization Adult Patients (1 - 1-dose 75+ series) 2024 Influenza Vaccine (Season Ended) 2024 Cholesterol Screening (Lipid Panel) 11/28/2024 11/29/2019 Osteoporosis Screening (Bone Density Screening) 01/26/2027 01/26/2017 Colorectal Cancer Screening: Colonoscopy 12/25/2030 12/25/2020 Hepatitis C Screening Completed 05/27/2013 Pneumococcal Vaccine: 50+ Years Completed 02/03/2023, 08/10/2018, 03/21/2015 Breast Cancer Screening Discontinued 11/14/19, 11/14/2023, 09/12/2022, Additional history exists HIB Vaccines Aged Out No longer eligi ble based on patient's age to complete this topic HPV Vaccines Aged Out No longer eligi ble based on patient's age to complete this topic Hepatitis A Vaccines Aged Out No long er eligible based on patient's age to complete this topic Hepatitis B Vaccines Aged Out No long er eligible based on patient's age to complete this topic IPV Vaccines Aged Out No longer eligi ble based on patient's age to complete this topic MMR Vaccines Aged Out No longer eligi ble based on patient's age to complete this topic Meningococcal ACWY Vaccine Aged Out N o longer eligible based on patient's age to complete this topic Meningococcal B Vaccine Aged Out No l onger eligible based on patient's age to complete this topic RSV Immunization Patients Under 20 months Aged Out No longer eligible based on patient's age to complete this topic Varicella Vaccines Aged Out No longer eligible based on patient's age to complete this topic Procedures Procedure Name Priority Date/Time Associated Diagnosis Comments SCREENING MAMMOGRAPHY BI 2-VIEW BREAST INC CAD Routine 11/14/2023 7:26 AM EDT Encounter for screening mammogram for malignant neoplasm of breast COLONOSCOPY Routine 12/25/2020 LIPID PANEL Routine 11/29/2019 DXA BONE DENSITY STUDY 1+ SITS AXIAL SKEL Routine 01/26/2017 11:40 AM EST Asymptomatic menopausal state HEPATITIS C SCREENING Routine 05/27/2013 from Last 3 Months or Most Recently Relevant to Health Maintenance Results * SCREENING MAMMOGRAPHY BI 2-VIEW BREAST INC CAD (11/14/2023 7:26 AM EDT) Anatomical Region Laterality Modality Radiographic Vane ging 09/12/2022 2:40 PM EDT Narrative 11/16/2023 5:52 PM EDT This is a summary report. The complete report is available in the patient's medical record. If you cannot access the medical record, please contact the sending organization for a detailed fax or copy. BILATERAL 3D DIGITAL SCREENING MAMMOGRAM History: Routine screening. ??No current breast complaints. Comparison: Multiple priors dating back to 07/02/2020 Technique: Bilateral full-field digital 3D mammography was performed using standard CC and MLO projections, left breast exaggerated CC CAD was used to evaluate this mammogram. Findings: Density: ??There are scattered areas of fibroglandular density-B RIGHT: No suspicious masses, groups of microcalcification or areas of architectural distortion identified. Stable typically benign parenchymal asymmetries LEFT: No suspicious masses, groups of microcalcifications or areas of architectural distortion identified. Stable typically benign parenchymal asymmetries IMPRESSION: : 1. ??No mammographic evidence of malignancy. BI-RADS Category 2 benign findings Recommendation: Routine annual screening mammography is recommended [facility] [address] [place] [id number] Procedure Note Joelle Britt MD - 01/25/2024 This is a summary report. The complete report is available in thepatient's medical record. If you cannot access the medical record, pleasecontact the sending organization for a detailed fax or copy. BILATERAL 3D DIGITAL SCREENING MAMMOGRAM History: Routine screening. No current breast complaints. Comparison: Multiple priors dating back to 07/02/2020 Technique: Bilateral full-field digital 3D mammography was performed usingstandard CC and MLO projections, left breast exaggerated CC CAD was used to evaluate this mammogram. Findings: Density: There are scattered areas of fibroglandular density-B RIGHT: No suspicious masses, groups of microcalcification or areas ofarchitectural distortion identified. Stable typically benign parenchymalasymmetries LEFT: No suspicious masses, groups of microcalcifications or areas ofarchitectural distortion identified. Stable typically benign parenchymalasymmetries IMPRESSION: : 1. No mammographic evidence of malignancy. BI-RADS Category 2 benign findings Recommendation: Routine annual screening mammography is recommended [address] [id number] Alida Spear MD IMG XR PROCEDURES Final Res ult * Colonoscopy (12/25/2020) Colonoscopy Abstracted, No interpretation Anatomical Region Laterality Modality Other Historical Provider HEALTH MAINTENANCE Final Result * (ABNORMAL) Lipid panel (11/29/2019) LDL/HDL Ratio 3 0 - 4 Triglycerides 148 0 - 150 mg/dL Cholesterol 243(A) 0 - 200 mg/dL HDL 86 >=40 mg/dL LDL Cholesterol 128(A) 0 - 100 mg/dL Blood Venous blood specimen / Unknown Historical Provider LAB BLOOD ORDERABLES Tana l Result * DXA BONE DENSITY STUDY 1+ SITS AXIAL SKEL (01/26/2017 11:40 AM EST) Anatomical Region Laterality Modality Bone Densitometr y 12/05/2016 11:1 3 AM EDT Narrative 01/26/2017 3:03 PM EST BONE DENSITY (DEXA) ? Lumbar Spine T-score is 1.1. ?? (SD relative to 20-29 y/o adult) Z-score is 3.1. ??(SD relative to age matched peers) This is considered normal by WHO criteria. Left Hip T-score is -0.3. Z-score is 1.3. This is considered normal by WHO criteria. There is moderate rotatory levoscoliosis of the lumbar spine. IMPRESSION: This patient is considered to have normal bone density by WHO criteria. [facility] Department of Internal Medicine recommends using National Osteoporosis Foundation (NOF) guidelines in treatment decisions related to osteoporosis. NOF guidelines suggest considering treatment for postmenopausal women and men aged 50 or older presenting with the following: History of hip or vertebral fracture. T-score = -2.5 (DXA) at the femoral neck, total hip, or spine, after appropriate evaluation to exclude secondary causes. Low bone mass (T-score between -1.0 and -2.5 at the femoral neck or spine) AND a 10-year probability of a hip fracture = 3% OR a 10-year probability of a major osteoporosis-related fracture = 20% based on the [place]-adapted WHO algorithm Please note that all treatment decisions require clinical judgment and consideration of individual patient factors, including patient preferences, co-morbidities, previous drug use, risk factors not captured in the FRAX model (e.g., frailty, falls, vitamin D deficiency, increased bone turnover, interval significant decline in bone density) and possible under- or over-estimation of fracture risk by FRAX. Optional alternative screening schedule based on arlene Villatoro., [facility] March 20, 2011 for patients with osteopenia (based on hip BMD T-score) is as follows: * ??advanced osteopenia (T scores -2.00 to -2.49), BMD testing every year * ??moderate osteopenia (T scores -1.50 to -1.99), BMD testing every 5 years mild osteopenia or normal BMD (T scores -1.50 and higher), BMD testing every 15 years Procedure Note Codi Levi MD - 04/03/2023 BONE DENSITY (DEXA) Lumbar Spine T-score is 1.1. (SD relative to 20-29 y/o adult) Z-score is 3.1. (SD relative to age matched peers) This is considered normal by WHO criteria. Left Hip T-score is -0.3. Z-score is 1.3. This is considered normal by WHO criteria. There is moderate rotatory levoscoliosis of the lumbar spine. IMPRESSION: This patient is considered to have normal bone density by WHO criteria. [facility] Department of Internal Medicine recommendsusing National Osteoporosis Foundation (NOF) guidelines in treatment decisions related toosteoporosis. NOF guidelines suggest considering treatment for postmenopausal women and menaged 50 or older presenting with the following: History of hip or vertebral fracture. T-score = -2.5 (DXA) at the femoral neck, total hip, or spine, afterappropriate evaluation to exclude secondary causes. Low bone mass (T-score between -1.0 and -2.5 at the femoral neck or spine)AND a 10-year probability of a hip fracture = 3% OR a 10-year probability of a majorosteoporosis-related fracture = 20% based on the [place]-adapted WHO algorithm Please note that all treatment decisions require clinical judgment andconsideration of individual patient factors, including patient preferences, co- morbidities,previous drug use, risk factors not captured in the FRAX model (e.g., frailty, falls, vitaminD deficiency, increased bone turnover, interval significant decline in bone density) andpossible under- or over-estimation of fracture risk by FRAX. Optional alternative screening schedule based on arlene Villatoro., NEJMJanuary 2011 for patients with osteopenia (based on hip BMD T-score) is as follows: * advanced osteopenia (T scores -2.00 to -2.49), BMD testing every year * moderate osteopenia (T scores -1.50 to -1.99), BMD testing every 5years mild osteopenia or normal BMD (T scores -1.50 and higher), BMD testingevery 15 years Kacey Hernandez NP [facility] DXA PROCEDURES Final Result * Hepatitis C Screening (05/27/2013) Hepatitis C Screening Abstracted us Historical Provider HEALTH MAINTENANCE Final Result from Last 3 Months or Most Recently Relevant to Health Maintenance Insurance [employer] MEDICARE Care Teams Motor Installer Relationship Specialty Start Date End Date Alida Spear MD [address] [facility] [address] [place] [address] PCP - General 03/11/21
== END 2024-07-26 12:01 | disposition home or self-care (01) ==
LOC: HO.HPS 10:49
PROVIDERS: PCP Internal Medicine; Visit Provider Hospitalist
DX: J30.9 Allergic rhinitis, unspecified (principal); J45.40 Moderate persistent asthma, uncomplicated; R49.0 Dysphonia
CPT/HCPCS: 99214

== ENCOUNTER → 2024-07-26 10:48 | Outpatient (BNVA) | payer MEDICARE, SELFPAY | PROVIDERS: PCP Internal Medicine; Visit Provider Hospitalist | DX: J45.40 Moderate persistent asthma, uncomplicated (principal); J30.9 Allergic rhinitis, unspecified; R49.0 Dysphonia | CPT/HCPCS: 99212 ==